=== PATIENT | male | born 1970 | race Two or more races ===

== ENCOUNTER 2020-07-08 15:44 | Emergency (ER) | payer SELFPAY | END 2020-07-08 17:57 | disposition home or self-care (01) | LOC: FER 15:44 | DX: S51.812A Laceration without foreign body of left forearm, initial encounter (principal); W26.8XXA Contact with other sharp object(s), not elsewhere classified, initial encounter; Y92.69 Other specified industrial and construction area as the place of occurrence of the external cause; Y99.0 Civilian activity done for income or pay ==